=== PATIENT | male | born 1960 | race Caucasian/White ===

== ENCOUNTER 2016-12-02 01:53 | Emergency (ER) | payer OTHER ==
[~2016-12-02] VITALS: Ht 172.7 cm; Wt 78.0 kg
[~2016-12-02 01:53] MED LIST: LITH150C7 PO
[2016-12-02 02:00] VITALS: BP 132/60; PULSE 69; RESP 16; TEMP 97.2; O2SAT 100
[2016-12-02] MEDS ORDERED: LISI10TA3 PO (02:07)
[2016-12-02] MEDS ORDERED: ASPI81CH CHEW (02:07)
[2016-12-02] MEDS ORDERED: LITH150C PO (02:07)
[2016-12-02] MEDS ORDERED: MELA5TAB15 PO (02:07)
[2016-12-02] MEDS ORDERED: ONDANSETRON HCL 4 MG/2 ML VIAL IV PUSH ONE (02:15)
[2016-12-02] MEDS ORDERED: MORPHINE SULFATE 4 MG/ML INJ IV PUSH ONE (02:15)
[2016-12-02 02:41] LABS: AUTOMATED NEUTROPHIL # 17.9 TH/MM3 (1.8-7.7); BASOPHIL # 0.1 TH/MM3 (0-0.2); BASOPHIL % 0.4 % (0.0-2.0); EOSINOPHIL % 0.1 % (0.0-4.0); HEMO FLAGS DIFF FINAL; LYMPH % 6.6 % (9.0-44.0); LYMPHOCYTE # 1.4 TH/MM3 (1.0-4.8); MEAN CORPUSCULAR HEMOGLOBIN 30.1 PG (27.0-34.0); MEAN CORPUSCULAR HGB CONC 34.6 % (32.0-36.0); MONO % 5.6 % (0.0-8.0); NEUT % 87.3 % (16.0-70.0); PLATELET COUNT 281 TH/MM3 (150-450); RED BLOOD COUNT 5.06 MIL/MM3 (4.50-5.90); RED CELL DISTRIBUTION WIDTH 13.6 % (11.6-17.2); WHITE BLOOD COUNT 20.5 TH/MM3 (4.0-11.0)
[2016-12-02 02:52] LABS: APTT (PATIENT) 27.1 SEC (24.3-30.1); PROTHROMBIN TIME - PATIENT 10.7 SEC (9.8-11.6)
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
[2016-12-02 02:56] LABS: BICARBONATE 23.3 MEQ/L (21.0-32.0); POTASSIUM 3.7 MEQ/L (3.5-5.1)
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
[2016-12-02] MEDS ORDERED: ACETAMINOPHEN/HYDROcodone 325 MG/5 MG TAB PO ONE (04:30)
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
[2016-12-02] MEDS ORDERED: HYDR-3533 PO (04:46)
== END 2016-12-02 04:58 | disposition home or self-care (01) ==
LOC: NEPC 02:10
DX: S51.811A Laceration without foreign body of right forearm, initial encounter (principal); S61.411A Laceration without foreign body of right hand, initial encounter; S09.90XA Unspecified injury of head, initial encounter; X99.1XXA Assault by knife, initial encounter; Y93.89 Activity, other specified; Y92.9 Unspecified place or not applicable; D72.829 Elevated white blood cell count, unspecified; E11.9 Type 2 diabetes mellitus without complications; F31.9 Bipolar disorder, unspecified; E78.00 Pure hypercholesterolemia, unspecified; F43.10 Post-traumatic stress disorder, unspecified; R11.2 Nausea with vomiting, unspecified
CPT/HCPCS: 12002; 70450; 70486; 73090; 73130; 80048; 85025; 85610; 85730; 96374; 96375; 99285; J2270; J2405

== ENCOUNTER 2016-12-11 08:42 | Emergency (ER) | payer OTHER ==
[~2016-12-11] VITALS: Ht 167.6 cm; Wt 78.0 kg
[~2016-12-11 08:42] MED LIST changes: +ASPI81CH CHEW; +HYDR-3533 PO; +LISI10TA3 PO; +LITH150C PO; -LITH150C7 PO; +MELA5TAB15 PO
[2016-12-11 08:43] VITALS: BP 180/80; PULSE 88; RESP 20; TEMP 98.9; O2SAT 98
[2016-12-11 08:45] VITALS: BP 180/80; PULSE 88; RESP 20; TEMP 98.4; O2SAT 98
[2016-12-11] MEDS ORDERED: BACT800T5 PO (09:40)
[2016-12-11] MEDS ORDERED: CEPH-460 PO (09:40)
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
== END 2016-12-11 10:14 | disposition home or self-care (01) ==
LOC: NEPK 08:42
DX: Z48.02 Encounter for removal of sutures (principal); L03.113 Cellulitis of right upper limb; F31.9 Bipolar disorder, unspecified; E11.9 Type 2 diabetes mellitus without complications; F43.10 Post-traumatic stress disorder, unspecified
CPT/HCPCS: 99284